=== PATIENT | female | born 1945 | race Caucasian/White ===

== ENCOUNTER 2016-10-02 02:46 | Emergency (ER) | payer MEDICARE, OTHER ==
[2016-10-02 07:10] LABS: HEMOGLOBIN 13.1 gm/dl (12.3-15.3); RED BLOOD COUNT 4.75 M/UL (4.00-5.10); WHITE BLOOD COUNT 11.4 K/UL (4.5-11.0)
== END 2016-10-02 09:25 | disposition home or self-care (01) ==
LOC: ER1 02:46
PROVIDERS: Student in an Organized Health Care Education/Training Program
DX: R10.32 Left lower quadrant pain (principal); M54.5 Low back pain; G89.29 Other chronic pain; I10 Essential (primary) hypertension; I51.9 Heart disease, unspecified; M32.9 Systemic lupus erythematosus, unspecified; Z88.2 Allergy status to sulfonamides
CPT/HCPCS: 36415; 80053; 81001; 83690; 85025; 96361; 96374; 96375; 96376; 99284; J2270; J2405

== ENCOUNTER → 2020-10-01 | Outpatient (CLI) | payer MEDICARE, OTHER ==
[~2020-10-01] MED LIST: ALL DAY ALLERGY10 M2 PO; ATROVENT-HFA12.9 GM INH; BIOTIN5 MG PO; CELEXA40 MG PO; COLCRYS0.6 MG PO; COLESTIPOL HCL1 GM PO; COREG6.25 MG PO; DOXYCYCLINE HY100 M2 PO; DULERA 100 MCG8.8 GM INH; KLOR-CON 1010 MEQ PO; LOTENSIN 5 MG TA5 MG PO; LOTRISONE CREAM15 GM TP; METOPROLOL SUCC25 MG PO; OMEPRAZOLE40 MG PO; PLAQUENIL 200200 MG PO; PRAVACHOL20 MG PO; SYNTHROID75 MCG PO; VITAMIN D35000 UNI1 PO
== END ==
LOC: HEART 5 09-28 08:45
DX: R07.89 Other chest pain (principal)
CPT/HCPCS: 78452; A9502; J2785

== ENCOUNTER → 2020-10-21 | Outpatient (CLI) | payer MEDICARE, OTHER | LOC: HEART 5 14:27 | DX: R06.00 Dyspnea, unspecified (principal); I27.20 Pulmonary hypertension, unspecified | CPT/HCPCS: 94010 ==